=== PATIENT | male | born 1990 ===

== ENCOUNTER → 2021-05-02 | Outpatient (CLI) | payer OTHER ==
[2021-05-02 17:27] LABS: BASOPHILS ABSOLUTE AUTO 0.02 K/mm3 (0.00-0.23); BASOPHILS PERCENT AUTO 0 % (0-2); EOSINOPHILS PERCENT AUTO 2 % (0-6); Hematocrit 45.9 % (37.0-53.0); Hemoglobin 15.5 g/dL (13.5-17.5); IMMATURE GRAN ABSOLUTE AUTO 0.01 K/mm3 (0.00-0.10); IMMATURE GRAN PERCENT AUTO 0 % (0-1); LYMPHOCYTES ABSOLUTE AUTO 1.95 K/mm3 (0.84-5.20); LYMPHOCYTES PERCENT AUTO 39 % (21-46); MONOCYTES ABSOLUTE AUTO 0.52 K/mm3 (0.16-1.47); MONOCYTES PERCENT AUTO 10 % (4-13); Mean Corpuscular HGB 29.7 pg (26.0-34.0); Mean Corpuscular HGB Conc 33.8 g/dL (31.5-36.5); Mean Corpuscular Volume 88 fL (80-100); Mean Platelet Volume 11.1 fL (9.1-12.4); NEUTROPHILS ABSOLUTE AUTO 2.42 K/mm3 (1.96-9.15); NEUTROPHILS PERCENT AUTO 48 % (41-73); Platelet Count 246 K/mm3 (150-400); RDW Coefficient Variation 11.8 % (11.7-14.2); Red Blood Cell Count 5.22 M/mm3 (4.30-5.90); White Blood Cell Count 5.02 K/mm3 (4.00-11.30)
[2021-05-02 17:29] LABS: Alanine Aminotransfer (ALT/SGP 59 U/L (12-78); Albumin, Blood 4.3 g/dL (3.4-5.0); Albumin/Globulin Ratio 1.3 (0.8-1.8); Alk Phos 91 U/L (50-136); Anion Gap 6 mmol/L (6-16); Aspartate Aminotrans (AST/SGOT 27 U/L (12-37); Bilirubin, Total 0.7 mg/dL (0.1-1.0); Blood Urea Nitrogen 13 mg/dL (8-24); Bun/Creatinine Ratio 16.2 (12.0-20.0); CO2, Blood 26 mmol/L (21-32); Calcium, Blood 9.2 mg/dL (8.5-10.1); Chloride, Blood 108 mmol/L (98-108); Globulin, Blood 3.4 g/dL (2.2-4.0); Glomerular Filtration Rate >60 (60-); Glucose, Blood 104 mg/dL (70-99); Potassium, Blood 3.9 mmol/L (3.5-5.5); Sodium, Blood 140 mmol/L (136-145); Total Protein, Blood 7.7 g/dL (6.4-8.2)
== END ==
LOC: LAB SHORT 15:00
PROVIDERS: Student in an Organized Health Care Education/Training Program
DX: Z00.00 Encounter for general adult medical examination without abnormal findings (principal)
CPT/HCPCS: 80053; 85025

== ENCOUNTER 2021-07-11 07:42 | Day surgery (SDC) | payer OTHER ==
[~2021-07-11] VITALS: Ht 177.8 cm; Wt 89.7 kg
--- NOTE | 2021-07-11 08:18 | NUR ---
Ambulatory in Day Surgery. History, Chart, Medications and Allergies reviewed before start of procedure. Lungs clear T/O to Auscultation. Patient confirms NPO status and agrees with scheduled surgery. Pre-Op teaching done. Pt verbalizes understanding. Patient States Post-Procedure ride home has been arranged. WITH PT. PT FILIPINO SPEAKING, ABLE TO ANSWER MOST QUESTIONS, TRANSLATING PER PT REQUEST FOR QUESTIONS HE HAS QUESTIONS WITH. 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
--- NOTE | 2021-07-11 13:03 | NUR ---
Discharge instructions reviewed with patient. Patient verbalizes understanding. Copy given to patient to take home.
--- NOTE | 2021-07-11 13:08 | NUR ---
Dressing to procedure site clean, dry, intact with no visible drainage, swelling, erythema or bruising noted. Discharged via wheelchair to private car for ride home.
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
== END 2021-07-11 13:10 | disposition home or self-care (01) ==
LOC: ORSCMMR 07:42 → ORD 09:15 → ORSCMMR 09:15
PROVIDERS: Surgery
PROC: 0WUF0JZ Supplement Abdominal Wall with Synthetic Substitute, Open Approach (ICD-10-PCS; principal; 2021-07-11 09:15)
DX: K42.0 Umbilical hernia with obstruction, without gangrene (principal); K21.9 Gastro-esophageal reflux disease without esophagitis; Z87.891 Personal history of nicotine dependence
CPT/HCPCS: A9270; C1781; J0690; J1100; J1885; J2250; J2405; J2550; J2704; J3010; J7120

== ENCOUNTER 2023-04-23 18:38 | Observation (INO) | payer OTHER ==
[~2023-04-23] VITALS: Ht 175.3 cm; Wt 88.4 kg
[2023-04-23] MEDS ORDERED: Lactated Ringer's 1,000 ML IV SCH (19:30)
[2023-04-23] MEDS ORDERED: HYDROmorphone HCl/Pf 1MG SYR IV ONE (19:35)
[2023-04-23] MEDS ORDERED: Piperacillin/Tazobactam Sod 3.375 GM in NS 50 ML IV ONE (19:35)
--- NOTE | 2023-04-23 20:39 | NUR ---
ARRIVAL TO UNIT PT ARRIVED VIA GOURNEY. AMBULATED INDEPENDENTLY TO BED. A&O x4, COOPERATIVE. PT IS NOT FLUENT IN [place]. PT HAS FAMILY MEMBER AT BEDSIDE TO INTERPRET FOR PT. PT REPORTS PAIN AT LEVEL 5, TOLERABLE AT THIS TIME. PT REQUESTS FOOD AND DRINK, VERBALIZES UNDERSTANDING OF NEED FOR NPO AT MIDNIGHT R/T SURGERY. NO STATED NEEDS AT THIS TIME. ORIENTED TO ROOM, BED IN LOWEST POSITION, CALL LIGHT IN REACH.
[2023-04-23 20:46] VITALS: BP 118/84
--- NOTE | 2023-04-23 23:05 | NUR ---
DR CONSULT CALL MADE TO DR VAUGHN REGARDING PT PAIN. TELEPHONE ORDER GIVEN FOR MEDICATION PER EMAR.
[2023-04-23] MEDS ORDERED: HYDROmorphone HCl/Pf 1MG SYR IV PRN (23:15)
[2023-04-24] VITALS (14 sets, daily range): BP systolic 101–121; BP diastolic 63–87
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
[2023-04-24] MEDS ORDERED: Ondansetron HCl 2 MG / ML 2ML Vial ONE (07:40)
[2023-04-24] MEDS ORDERED: Piperacillin/Tazobactam Sod 3.375 GM in NS 50 ML IV SCH (07:40)
[2023-04-24] MEDS ORDERED: Rocuronium Bromide 10 MG/ML 5ML Injection IV ONE (07:40)
[2023-04-24] MEDS ORDERED: Dexamethasone Sod Phos 10 MG/ML 1ML VIAL ONE (07:40)
[2023-04-24] MEDS ORDERED: propofoL 20 ML IV ONE (07:40)
[2023-04-24] MEDS ORDERED: Midazolam HCl 1MG / ML 2ML Vial ONE (07:41)
[2023-04-24] MEDS ORDERED: FentaNYL Citrate 50 MCG/ML 2 ML Injection ONE ×2 (07:41→09:40)
[2023-04-24] MEDS ORDERED: Bupivacaine 0.5% HCl 5 MG/ML 30MLVIAL ONE (07:52)
[2023-04-24] MEDS ORDERED: Sugammadex Sodium 200 MG/2ML SDV (100 MG/ML) ONE (08:30)
[2023-04-24] MEDS ORDERED: HYDROmorphone HCl/Pf 1MG SYR ONE (08:41)
[2023-04-24] MEDS ORDERED: Ketorolac Tromethamine 30mg Vial ONE (09:27)
[2023-04-24] MEDS ORDERED: FLU VACC QS2023-24(6MOS UP)/PF 60 MCG/0.5 ML SYRINGE IM ONE (09:30)
[2023-04-24] MEDS ORDERED: Acetaminophen 325 MG TABLET PO PRN (09:30)
[2023-04-24] MEDS ORDERED: OxyCODONE HCL 5 MG TAB PO PRN (09:30)
[2023-04-24] MEDS ORDERED: OXYC5 PO (11:40)
--- NOTE | 2023-04-24 14:34 | NUR ---
DISCHARGE SUMMARY PT A&OX4, VSS/RA, SOFIA PO, VOIDING, AMB INDEPENDENTLY/DRESSED SELF, DENIES PAIN, IV DC'D. DC INS PROVIDED. PT AND REP UNDERSTANDING THOSE INSTRUCTIONS. LEFT FLOOR, DECLINING WC, WALKING OUT WITH , WITH ALL PERSONAL POSSESSIONS INCLUDING DC PACKET, 1 NARC SCRIPT AND 1 WORK NOTE.
[2023-04-25] MEDS ORDERED: Enoxaparin 40 MG/0.4 ML SYR SC SCH (09:00)
== END 2023-04-24 14:34 | disposition home or self-care (01) ==
LOC: ER 18:38 → SURS 18:40 → ER 19:43 → SURS 19:43
PROVIDERS: ADMIT Surgery
PROC: 0DTJ4ZZ Resection of Appendix, Percutaneous Endoscopic Approach (ICD-10-PCS; principal; 2023-04-24 08:00)
DX: K35.80 Unspecified acute appendicitis (principal); R79.89 Other specified abnormal findings of blood chemistry; R59.1 Generalized enlarged lymph nodes; R10.31 Right lower quadrant pain; Z87.891 Personal history of nicotine dependence
CPT/HCPCS: 74177; 80053; 83690; 85025; 88304; 96365; 96375; 99284-25; G0378; J1100; J1170; J1885; J2250; J2405; J2543; J2704; J3010; J7120; Q9967

== ENCOUNTER → 2024-01-03 | Outpatient (CLI) | payer OTHER ==
[~2024-01-03] MED LIST: OXYC5 PO
[2024-01-03 11:32] LABS: Protein, Urine Quantitative 11.1 mg/dL (0.0-11.9)
[2024-01-03 11:35] LABS: Microalbumin, Urine Quant. 5.45 mg/L (0.000-20.000)
== END | disposition home or self-care (01) ==
LOC: LAB SHORT 07:30 → LAB 07:30
PROVIDERS: Internal Medicine Nephrology
DX: N18.30 Chronic kidney disease, stage 3 unspecified (principal); D63.1 Anemia in chronic kidney disease; E83.51 Hypocalcemia; N25.81 Secondary hyperparathyroidism of renal origin; E55.9 Vitamin D deficiency, unspecified; R76.9 Abnormal immunological finding in serum, unspecified; R94.5 Abnormal results of liver function studies; R94.6 Abnormal results of thyroid function studies
CPT/HCPCS: 81050; 82043; 82570; 84156